=== PATIENT | female | born 1975 | race Two or more races ===

== ENCOUNTER 2024-12-11 06:18 | Day surgery (SDC) | payer MEDICAID ==
[2024-12-11] VITALS (7 sets, daily range): BP systolic 115–138; BP diastolic 69–89; PULSE 79–92; RESP 17–20; TEMP 98; O2SAT 93–95
[~2024-12-11] VITALS: Ht 167.6 cm; Wt 102.1 kg
[~2024-12-11 06:18] MED LIST: CARV25TA55 PO; LEVO100T8 PO; METF-929 PO; NIFE1TAB31 PO; ROSU10TA16 PO; TIRZ7.5I2 SC
[2024-12-11] MEDS ORDERED: IODIXANOL 320MG/ML 100ML BTL IV ONE (07:35)
[2024-12-11] MEDS ORDERED: ANGIOMAX 250 MG VIAL IV ONE (07:51)
[2024-12-11] MEDS ORDERED: MIDAZOLAM HCL 2MG/2ML 2ml VIAL (1mg/ml) ONE (07:52)
[2024-12-11] MEDS ORDERED: VERAPAMIL 2.5MG/ML INJ 2ML VIAL IV ONE (07:52)
[2024-12-11] MEDS ORDERED: fentaNYL CITRATE 100 MCG/2 ML VL ONE (07:52)
[2024-12-11] MEDS ORDERED: LIDOCAINE 2%HCL (LOCAL ANESTH.) INJ 20ML MDV ONE (07:53)
[2024-12-11] MEDS ORDERED: SODIUM CHL 0.9% 0 ML ONE (07:53)
[2024-12-11] MEDS ORDERED: HEPARIN SODIUM (PORCINE) 5000 UNITS/ML 1ML VIAL ONE (08:38)
--- NOTE | 2024-12-11 08:46 | DVHOP2 ---
Operative Report Procedures performed: Left heart catheterization and bilateral coronary angiogram Moderate sedation Diagnosis: No angiographic evidence for epicardial coronary artery disease (normal coronaries) LVEF of 55% with normal EDP Cardiac suggestion for management: Optimized medical therapy Lifestyle and risk factor modifications Findings: LVEF: 55% LVEDP: 5 mm Hg There was no transaortic valve pressure gradient Left main: Left main was coming off the left sinus of Valsalva. It was free of disease. Ramus intermedius: Ramus intermedius was a large-caliber artery which came off the left main. It was free of disease. LAD: LAD was coming off the left main. It provided a large diagonal. LAD throughout its course and branches was free of disease. LCX: LCX was coming off the left main. OM1 was a small-caliber vessel. OM2 was a medium-sized caliber vessel. OM3 was a large caliber vessel. LCX throughout its course and branches was free of disease. RCA: RCA was coming off the right sinus of Valsalva. It provided RPDA/RPLS. It was the dominant vessel. RCA throughout its course and branches was free of disease. Presentation: Patient is a 48-year-old female who presented to the office with chest pain. Past medical history includes hypertension, hyperlipidemia, obesity, polycystic ovary syndrome, hypothyroidism, anxiety disorder and short SVTs. Echocardiogram of June 2024 revealed ejection fraction of 60-65%, normal diastole, trace MR/TR, mild mitral valvular prolapse and right ventricular systolic pressure of less than 35 mm Hg. Treadmill stress test was borderline positive for ischemia. Patient was sent for CT angiography of the coronaries but unfortunately the heart rate could not be lowered and CT angiography could not be performed. Patient was sent for cardiac catheterization. Procedure: After obtaining informed consent, the patient was brought to the director of laboratory operations. She was prepped and draped in sterile fashion. Right radial artery was used for access site. 1 mg of Versed and 50 mcg of fentanyl were used for moderate sedation. Using Seldinger technique, the right radial artery was accessed and a 6 [place] slender sheath was inserted into it. 2.5 mg of verapamil and 100 mcg of nitroglycerin were given as a cocktail into the right radial sheath. 5000 units of heparin was given peripherally. A 5 [place] tiger 4 diagnostic catheter was used to perform left heart catheterization (obtaining pressures and performing left ventriculography) and bilateral coronary angiography. There was no indication for any transcatheter revascularization. Total bleeding was less than 10 mL. There was no dissection/hematoma/perforation. Patient tolerated the procedure with no complication. Right radial artery access site was managed by deploying a TR band. Fluoroscopy time: 3.6 minutes contrast: 45 mL of Visipaque. JOHN PETERS MD Dec 11, 2024 08:46
== END 2024-12-11 11:00 | disposition home or self-care (01) ==
LOC: CATH 06:18
PROVIDERS: ATTEND Internal Medicine Cardiovascular Disease
DX: R07.9 Chest pain, unspecified (principal); R94.39 Abnormal result of other cardiovascular function study; I10 Essential (primary) hypertension; I47.10 Supraventricular tachycardia, unspecified; I34.1 Nonrheumatic mitral (valve) prolapse; E78.5 Hyperlipidemia, unspecified; E66.9 Obesity, unspecified; E28.2 Polycystic ovarian syndrome; E03.9 Hypothyroidism, unspecified; F41.9 Anxiety disorder, unspecified; Z79.84 Long term (current) use of oral hypoglycemic drugs; Z79.890 Hormone replacement therapy; Z79.899 Other long term (current) drug therapy
CPT/HCPCS: 93458; C1769; C1894; J1644; J2250; J3010; J7030; Q9967; 99152